=== PATIENT | male | born 1955 | race Caucasian/White ===

== ENCOUNTER 2021-12-11 16:23 | Inpatient (IN) | payer OTHER ==
[~2021-12-11] VITALS: Ht 177.8 cm; Wt 70.8 kg
[2021-12-11 20:00] VITALS: BP 106/68
[2021-12-11] MEDS ORDERED: ACETAMINOPHEN 325 MG TABLET PO PRN (20:00)
[2021-12-11] MEDS: SENNA 187 MG TABLET PO SCH (21:00)
[2021-12-11] MEDS: DOCUSATE SODIUM 100 MG CAPSULE PO SCH (21:00)
[2021-12-11] MEDS: POLYETHYLENE GLYCOL 3350 17 GM PACKET PO SCH (21:00)
[2021-12-11] MEDS: ROSUVASTATIN CALCIUM 20 MG TABLET PO SCH (21:26)
[2021-12-11] MEDS: ETHYL ALCOHOL 62% ANTISEPTIC NASAL SANITIZER 0.6 ML AMPUL NASAL SCH (21:27)
[2021-12-12 06:53] LABS: BASOPHILS % (AUTO) 1.3 % (0.0-2.0); EOSINOPHILS % (AUTO) 3.8 % (1.0-6.0); HEMATOCRIT 38.1 % (41-53); HEMOGLOBIN 12.5 g/dL (13.5-17.5); LYMPHOCYTES # (AUTO) 0.9 K/uL (1.0-4.8); LYMPHOCYTES % (AUTO) 13.9 % (22.0-44.0); MEAN CORPUSCULAR HGB CONC 32.9 G/dL (31.0-37.0); MEAN CORPUSCULAR VOLUME 85 fL (80-100); MONOCYTES # (AUTO) 0.7 K/uL (0.1-1.0); MONOCYTES % (AUTO) 11.2 % (2.0-9.0); NEUTROPHILS # (AUTO) 4.3 K/uL (1.8-7.7); NEUTROPHILS % (AUTO) 69.8 % (40.0-70.0); PLATELET COUNT (AUTO) 377 K/uL (150-450); RED BLOOD CELL COUNT(AUTO) 4.48 MIL/uL (4.50-5.90); RED CELL DISTRIBUTION WIDTH 15.1 % (11.5-14.5)
[2021-12-12 07:14] LABS: ALANINE AMINOTRANSFERASE 79 U/L (12-78); ALBUMIN 2.9 g/dL (3.4-5.0); ALKALINE PHOSPHATASE 82 U/L (46-116); ANION GAP 5 mmol/L (8-16); ASPARTATE AMINOTRANSFERASE 34 U/L (15-37); BILIRUBIN,TOTAL 0.2 mg/dL (0.1-1.0); CALCIUM, TOTAL 9.4 mg/dL (8.8-10.5); CARBON DIOXIDE 31 mmol/L (22-29); CHLORIDE 104 mmol/L (98-107); CREATININE 0.69 mg/dL (0.60-1.30); GLUCOSE,RANDOM 94 mg/dL (70-110); POTASSIUM 4.5 mmol/L (3.5-5.1); SODIUM SERUM 140 mmol/L (136-145); TOTAL PROTEIN, SERUM 6.6 g/dL (6.4-8.2); UREA NITROGEN, BLOOD 16 mg/dL (7-18)
[2021-12-12 07:33] LABS: GLOMERULAR FILTR. RATE CALC > 60 mL/min (>60)
[2021-12-12 08:05] VITALS: BP 145/75
[2021-12-12] MEDS: ETHYL ALCOHOL 62% ANTISEPTIC NASAL SANITIZER 0.6 ML AMPUL NASAL SCH ×2 (08:09→20:57)
[2021-12-12] MEDS: POLYETHYLENE GLYCOL 3350 17 GM PACKET PO SCH ×2 (08:10→20:51)
[2021-12-12] MEDS: DOCUSATE SODIUM 100 MG CAPSULE PO SCH ×2 (08:10→20:51)
[2021-12-12] MEDS: ASPIRIN 81 MG DR TABLET PO SCH (08:11)
[2021-12-12] MEDS: ENOXAPARIN SODIUM 40 MG/0.4 ML PF SYRINGE SQ SCH (08:11)
[2021-12-12] MEDS: COLD CREAM, SKIN EMOLLIENT 170 GM JAR TP SCH ×2 (08:12→20:33)
[2021-12-12] MEDS: ESOMEPRAZOLE MAG TRIHYDRATE 20 MG CAPSULE PO SCH (08:12)
[2021-12-12] MEDS ORDERED: ROSUVASTATIN CALCIUM 20 MG TABLET PO SCH (09:00)
[2021-12-12] MEDS: ROSUVASTATIN CALCIUM 20 MG TABLET PO SCH (20:32)
[2021-12-12] MEDS: SENNA 187 MG TABLET PO SCH (20:51)
[2021-12-12 21:00] VITALS: BP 122/75
[2021-12-13 08:30] VITALS: BP 118/78
[2021-12-13] MEDS: ETHYL ALCOHOL 62% ANTISEPTIC NASAL SANITIZER 0.6 ML AMPUL NASAL SCH ×2 (08:41→20:47)
[2021-12-13] MEDS: DOCUSATE SODIUM 100 MG CAPSULE PO SCH (08:41)
[2021-12-13] MEDS: ENOXAPARIN SODIUM 40 MG/0.4 ML PF SYRINGE SQ SCH (08:41)
[2021-12-13] MEDS: ESOMEPRAZOLE MAG TRIHYDRATE 20 MG CAPSULE PO SCH (08:42)
[2021-12-13] MEDS: POLYETHYLENE GLYCOL 3350 17 GM PACKET PO SCH ×2 (08:42→20:47)
[2021-12-13] MEDS: ASPIRIN 81 MG DR TABLET PO SCH (08:42)
[2021-12-13] MEDS: COLD CREAM, SKIN EMOLLIENT 170 GM JAR TP SCH ×2 (08:43→20:47)
[2021-12-13] MEDS ORDERED: DOCUSATE SODIUM 100 MG CAPSULE PO PRN (09:15)
[2021-12-13] MEDS: ROSUVASTATIN CALCIUM 20 MG TABLET PO SCH (20:47)
[2021-12-13] MEDS: SENNA 187 MG TABLET PO SCH (20:47)
[2021-12-13 21:00] VITALS: BP 116/70
[2021-12-14 07:45] VITALS: BP 130/84
[2021-12-14] MEDS: ETHYL ALCOHOL 62% ANTISEPTIC NASAL SANITIZER 0.6 ML AMPUL NASAL SCH ×2 (08:20→20:51)
[2021-12-14] MEDS: ASPIRIN 81 MG DR TABLET PO SCH (08:21)
[2021-12-14] MEDS: POLYETHYLENE GLYCOL 3350 17 GM PACKET PO SCH (08:21)
[2021-12-14] MEDS: ESOMEPRAZOLE MAG TRIHYDRATE 20 MG CAPSULE PO SCH (08:22)
[2021-12-14] MEDS: ENOXAPARIN SODIUM 40 MG/0.4 ML PF SYRINGE SQ SCH (08:22)
[2021-12-14] MEDS: COLD CREAM, SKIN EMOLLIENT 170 GM JAR TP SCH ×2 (08:23→20:51)
[2021-12-14] MEDS ORDERED: POLYETHYLENE GLYCOL 3350 17 GM PACKET PO PRN (09:30)
[2021-12-14] MEDS ORDERED: SENNA 187 MG TABLET PO PRN (09:30)
[2021-12-14 15:19] LABS: APPEARANCE,URINE CLEAR (CLEAR); BILIRUBIN,URINE NEGATIVE (NEGATIVE); GLUCOSE, URINE (UA) NEGATIVE (NEGATIVE); KETONES,URINE NEGATIVE (NEGATIVE); LEUKOCYTE ESTERASE ,URINE NEGATIVE (NEGATIVE); NITRATE,URINE NEGATIVE (NEGATIVE); OCCULT BLOOD,URINE NEGATIVE (NEGATIVE); PROTEIN,URINE TRACE mg/dL (NEGATIVE); SPECIFIC GRAVITIY, URINE 1.019 (1.003-1.030); UROBILINOGEN,URINE <=1.0 mg/dL (<=1.0)
[2021-12-14 15:33] LABS: BACTERIA,URINE None Seen /HPF (None Seen); RBC,URINE None Seen /HPF (0-2); WBC,URINE 0-2 /HPF (0-5)
[2021-12-14 20:00] VITALS: BP 122/76
[2021-12-14] MEDS: TAMSULOSIN HCL 0.4 MG CAPSULE PO SCH (20:51)
[2021-12-14] MEDS: ROSUVASTATIN CALCIUM 20 MG TABLET PO SCH (20:51)
[2021-12-15] MEDS: ESOMEPRAZOLE MAG TRIHYDRATE 20 MG CAPSULE PO SCH (08:14)
[2021-12-15] MEDS: ETHYL ALCOHOL 62% ANTISEPTIC NASAL SANITIZER 0.6 ML AMPUL NASAL SCH ×2 (08:14→20:33)
[2021-12-15] MEDS: ASPIRIN 81 MG DR TABLET PO SCH (08:14)
[2021-12-15] MEDS: ENOXAPARIN SODIUM 40 MG/0.4 ML PF SYRINGE SQ SCH (08:15)
[2021-12-15] MEDS: COLD CREAM, SKIN EMOLLIENT 170 GM JAR TP SCH ×2 (08:15→20:33)
[2021-12-15 08:25] VITALS: BP 130/83
[2021-12-15 20:01] VITALS: BP 117/57
[2021-12-15] MEDS: ROSUVASTATIN CALCIUM 20 MG TABLET PO SCH (20:33)
[2021-12-15] MEDS: TAMSULOSIN HCL 0.4 MG CAPSULE PO SCH (20:33)
[2021-12-16 08:02] VITALS: BP 121/73
[2021-12-16] MEDS: ENOXAPARIN SODIUM 40 MG/0.4 ML PF SYRINGE SQ SCH (08:12)
[2021-12-16] MEDS: ASPIRIN 81 MG DR TABLET PO SCH (08:12)
[2021-12-16] MEDS: ESOMEPRAZOLE MAG TRIHYDRATE 20 MG CAPSULE PO SCH (08:12)
[2021-12-16] MEDS: ETHYL ALCOHOL 62% ANTISEPTIC NASAL SANITIZER 0.6 ML AMPUL NASAL SCH ×2 (08:13→20:29)
[2021-12-16] MEDS: COLD CREAM, SKIN EMOLLIENT 170 GM JAR TP SCH ×2 (08:15→20:29)
[2021-12-16 20:15] VITALS: BP 115/77
[2021-12-16] MEDS: TAMSULOSIN HCL 0.4 MG CAPSULE PO SCH (20:29)
[2021-12-16] MEDS: ROSUVASTATIN CALCIUM 20 MG TABLET PO SCH (20:29)
[2021-12-16] MEDS: MELATONIN 5 MG TABLET PO PRN (20:29)
[2021-12-17 07:35] VITALS: BP 122/78
[2021-12-17] MEDS: ESOMEPRAZOLE MAG TRIHYDRATE 20 MG CAPSULE PO SCH (08:05)
[2021-12-17] MEDS: ETHYL ALCOHOL 62% ANTISEPTIC NASAL SANITIZER 0.6 ML AMPUL NASAL SCH ×2 (08:05→20:09)
[2021-12-17] MEDS: ASPIRIN 81 MG DR TABLET PO SCH (08:05)
[2021-12-17] MEDS: ENOXAPARIN SODIUM 40 MG/0.4 ML PF SYRINGE SQ SCH (08:06)
[2021-12-17] MEDS: COLD CREAM, SKIN EMOLLIENT 170 GM JAR TP SCH ×2 (08:06→20:10)
[2021-12-17] MEDS: MELATONIN 5 MG TABLET PO PRN (20:09)
[2021-12-17] MEDS: TAMSULOSIN HCL 0.4 MG CAPSULE PO SCH (20:10)
[2021-12-17] MEDS: ROSUVASTATIN CALCIUM 20 MG TABLET PO SCH (20:10)
[2021-12-17 20:30] VITALS: BP 108/72
[2021-12-18] MEDS: ETHYL ALCOHOL 62% ANTISEPTIC NASAL SANITIZER 0.6 ML AMPUL NASAL SCH ×2 (07:50→21:07)
[2021-12-18] MEDS: ENOXAPARIN SODIUM 40 MG/0.4 ML PF SYRINGE SQ SCH (07:50)
[2021-12-18] MEDS: ASPIRIN 81 MG DR TABLET PO SCH (07:50)
[2021-12-18] MEDS: ESOMEPRAZOLE MAG TRIHYDRATE 20 MG CAPSULE PO SCH (07:50)
[2021-12-18] MEDS: COLD CREAM, SKIN EMOLLIENT 170 GM JAR TP SCH ×2 (07:51→21:07)
[2021-12-18 08:02] VITALS: BP 119/74
[2021-12-18 20:00] VITALS: BP 111/71
[2021-12-18] MEDS: MIRTAZAPINE 15 MG TABLET PO SCH (21:07)
[2021-12-18] MEDS: ROSUVASTATIN CALCIUM 20 MG TABLET PO SCH (21:07)
[2021-12-18] MEDS: TAMSULOSIN HCL 0.4 MG CAPSULE PO SCH (21:07)
[2021-12-19 08:15] VITALS: BP 123/80
[2021-12-19] MEDS: ETHYL ALCOHOL 62% ANTISEPTIC NASAL SANITIZER 0.6 ML AMPUL NASAL SCH ×2 (09:00→20:10)
[2021-12-19] MEDS: ENOXAPARIN SODIUM 40 MG/0.4 ML PF SYRINGE SQ SCH (09:00)
[2021-12-19] MEDS: ESOMEPRAZOLE MAG TRIHYDRATE 20 MG CAPSULE PO SCH (09:00)
[2021-12-19] MEDS: ASPIRIN 81 MG DR TABLET PO SCH (09:00)
[2021-12-19] MEDS: COLD CREAM, SKIN EMOLLIENT 170 GM JAR TP SCH ×2 (09:01→20:10)
[2021-12-19 09:45] VITALS: BP 120/76
[2021-12-19] MEDS: TAMSULOSIN HCL 0.4 MG CAPSULE PO SCH (20:09)
[2021-12-19] MEDS: ROSUVASTATIN CALCIUM 20 MG TABLET PO SCH (20:09)
[2021-12-19] MEDS: MIRTAZAPINE 15 MG TABLET PO SCH (20:09)
[2021-12-19 20:59] VITALS: BP 127/80
[2021-12-20 08:30] VITALS: BP 124/64
[2021-12-20] MEDS: ASPIRIN 81 MG DR TABLET PO SCH (08:31)
[2021-12-20] MEDS: ETHYL ALCOHOL 62% ANTISEPTIC NASAL SANITIZER 0.6 ML AMPUL NASAL SCH ×2 (08:31→20:12)
[2021-12-20] MEDS: ESOMEPRAZOLE MAG TRIHYDRATE 20 MG CAPSULE PO SCH (08:31)
[2021-12-20] MEDS: ENOXAPARIN SODIUM 40 MG/0.4 ML PF SYRINGE SQ SCH (08:31)
[2021-12-20] MEDS: COLD CREAM, SKIN EMOLLIENT 170 GM JAR TP SCH ×2 (08:32→20:13)
[2021-12-20] MEDS: ROSUVASTATIN CALCIUM 20 MG TABLET PO SCH (20:11)
[2021-12-20] MEDS: MIRTAZAPINE 15 MG TABLET PO SCH (20:11)
[2021-12-20] MEDS: TAMSULOSIN HCL 0.4 MG CAPSULE PO SCH (20:11)
[2021-12-20 20:14] VITALS: BP 111/67
[2021-12-21] MEDS: ENOXAPARIN SODIUM 40 MG/0.4 ML PF SYRINGE SQ SCH (07:30)
[2021-12-21] MEDS: ASPIRIN 81 MG DR TABLET PO SCH (07:30)
[2021-12-21] MEDS: COLD CREAM, SKIN EMOLLIENT 170 GM JAR TP SCH ×2 (07:30→21:10)
[2021-12-21] MEDS: ESOMEPRAZOLE MAG TRIHYDRATE 20 MG CAPSULE PO SCH (07:30)
[2021-12-21] MEDS: ETHYL ALCOHOL 62% ANTISEPTIC NASAL SANITIZER 0.6 ML AMPUL NASAL SCH ×2 (07:34→21:10)
[2021-12-21 08:30] VITALS: BP 135/85
[2021-12-21 21:08] VITALS: BP 143/75
[2021-12-21] MEDS: MIRTAZAPINE 15 MG TABLET PO SCH (21:10)
[2021-12-21] MEDS: TAMSULOSIN HCL 0.4 MG CAPSULE PO SCH (21:10)
[2021-12-21] MEDS: ROSUVASTATIN CALCIUM 20 MG TABLET PO SCH (21:10)
[2021-12-22 08:15] VITALS: BP 111/72
[2021-12-22] MEDS: ESOMEPRAZOLE MAG TRIHYDRATE 20 MG CAPSULE PO SCH (08:40)
[2021-12-22] MEDS: ETHYL ALCOHOL 62% ANTISEPTIC NASAL SANITIZER 0.6 ML AMPUL NASAL SCH ×2 (08:40→20:37)
[2021-12-22] MEDS: ENOXAPARIN SODIUM 40 MG/0.4 ML PF SYRINGE SQ SCH (08:40)
[2021-12-22] MEDS: ASPIRIN 81 MG DR TABLET PO SCH (08:41)
[2021-12-22] MEDS: COLD CREAM, SKIN EMOLLIENT 170 GM JAR TP SCH ×2 (08:44→20:40)
[2021-12-22 20:05] VITALS: BP 109/65
[2021-12-22] MEDS: TAMSULOSIN HCL 0.4 MG CAPSULE PO SCH (20:38)
[2021-12-22] MEDS: ROSUVASTATIN CALCIUM 20 MG TABLET PO SCH (20:38)
[2021-12-22] MEDS: MIRTAZAPINE 15 MG TABLET PO SCH (20:38)
[2021-12-23 08:05] VITALS: BP 121/81
[2021-12-23] MEDS: ENOXAPARIN SODIUM 40 MG/0.4 ML PF SYRINGE SQ SCH (08:58)
[2021-12-23] MEDS: ETHYL ALCOHOL 62% ANTISEPTIC NASAL SANITIZER 0.6 ML AMPUL NASAL SCH ×2 (08:58→20:13)
[2021-12-23] MEDS: ESOMEPRAZOLE MAG TRIHYDRATE 20 MG CAPSULE PO SCH (08:58)
[2021-12-23] MEDS: COLD CREAM, SKIN EMOLLIENT 170 GM JAR TP SCH ×2 (08:59→20:14)
[2021-12-23] MEDS: ASPIRIN 81 MG DR TABLET PO SCH (08:59)
[2021-12-23] MEDS: ROSUVASTATIN CALCIUM 20 MG TABLET PO SCH (20:13)
[2021-12-23] MEDS: TAMSULOSIN HCL 0.4 MG CAPSULE PO SCH (20:13)
[2021-12-23] MEDS: MIRTAZAPINE 15 MG TABLET PO SCH (20:13)
[2021-12-23 20:15] VITALS: BP 118/73
[2021-12-24] MEDS: ETHYL ALCOHOL 62% ANTISEPTIC NASAL SANITIZER 0.6 ML AMPUL NASAL SCH ×2 (08:14→21:00)
[2021-12-24] MEDS: ENOXAPARIN SODIUM 40 MG/0.4 ML PF SYRINGE SQ SCH (08:14)
[2021-12-24] MEDS: ESOMEPRAZOLE MAG TRIHYDRATE 20 MG CAPSULE PO SCH (08:14)
[2021-12-24] MEDS: ASPIRIN 81 MG DR TABLET PO SCH (08:15)
[2021-12-24] MEDS: COLD CREAM, SKIN EMOLLIENT 170 GM JAR TP SCH ×2 (08:16→21:01)
[2021-12-24 08:20] VITALS: BP 134/77
[2021-12-24] MEDS: TAMSULOSIN HCL 0.4 MG CAPSULE PO SCH (21:00)
[2021-12-24] MEDS: MIRTAZAPINE 15 MG TABLET PO SCH (21:00)
[2021-12-24] MEDS: ROSUVASTATIN CALCIUM 20 MG TABLET PO SCH (21:00)
[2021-12-24 21:05] VITALS: BP 120/74
[2021-12-25 08:00] VITALS: BP 122/75
[2021-12-25] MEDS: ENOXAPARIN SODIUM 40 MG/0.4 ML PF SYRINGE SQ SCH (09:00)
[2021-12-25] MEDS: ESOMEPRAZOLE MAG TRIHYDRATE 20 MG CAPSULE PO SCH (09:00)
[2021-12-25] MEDS: ETHYL ALCOHOL 62% ANTISEPTIC NASAL SANITIZER 0.6 ML AMPUL NASAL SCH ×2 (09:00→20:14)
[2021-12-25] MEDS: ASPIRIN 81 MG DR TABLET PO SCH (09:00)
[2021-12-25] MEDS: COLD CREAM, SKIN EMOLLIENT 170 GM JAR TP SCH ×2 (09:01→20:15)
[2021-12-25] MEDS: ROSUVASTATIN CALCIUM 20 MG TABLET PO SCH (20:15)
[2021-12-25] MEDS: MIRTAZAPINE 15 MG TABLET PO SCH (20:15)
[2021-12-25] MEDS: TAMSULOSIN HCL 0.4 MG CAPSULE PO SCH (20:15)
[2021-12-25 21:00] VITALS: BP 124/79
[2021-12-25] MEDS ORDERED: ESOM20CA39 PO (22:24)
[2021-12-25] MEDS ORDERED: ASPI-1450 PO (22:24)
[2021-12-25] MEDS ORDERED: ROSU20TA73 PO (22:24)
[2021-12-25] MEDS ORDERED: MIRT-89 PO (22:24)
[2021-12-25] MEDS ORDERED: TAMS-13 PO (22:24)
[2021-12-26 08:15] VITALS: BP 129/87
[2021-12-26] MEDS: ENOXAPARIN SODIUM 40 MG/0.4 ML PF SYRINGE SQ SCH (09:01)
[2021-12-26] MEDS: ESOMEPRAZOLE MAG TRIHYDRATE 20 MG CAPSULE PO SCH (09:01)
[2021-12-26] MEDS: ETHYL ALCOHOL 62% ANTISEPTIC NASAL SANITIZER 0.6 ML AMPUL NASAL SCH ×2 (09:01→20:24)
[2021-12-26] MEDS: COLD CREAM, SKIN EMOLLIENT 170 GM JAR TP SCH ×2 (09:01→20:25)
[2021-12-26] MEDS: ASPIRIN 81 MG DR TABLET PO SCH (09:01)
[2021-12-26] MEDS: ROSUVASTATIN CALCIUM 20 MG TABLET PO SCH (20:24)
[2021-12-26] MEDS: TAMSULOSIN HCL 0.4 MG CAPSULE PO SCH (20:24)
[2021-12-26] MEDS: MIRTAZAPINE 15 MG TABLET PO SCH (20:24)
[2021-12-26 20:43] VITALS: BP 114/72
[2021-12-27 07:30] VITALS: BP 125/80
[2021-12-27] MEDS: ASPIRIN 81 MG DR TABLET PO SCH (08:40)
[2021-12-27] MEDS: ESOMEPRAZOLE MAG TRIHYDRATE 20 MG CAPSULE PO SCH (08:40)
[2021-12-27] MEDS: ETHYL ALCOHOL 62% ANTISEPTIC NASAL SANITIZER 0.6 ML AMPUL NASAL SCH ×2 (08:40→20:40)
[2021-12-27] MEDS: ENOXAPARIN SODIUM 40 MG/0.4 ML PF SYRINGE SQ SCH (08:41)
[2021-12-27] MEDS: COLD CREAM, SKIN EMOLLIENT 170 GM JAR TP SCH ×2 (08:41→20:41)
[2021-12-27] MEDS: ROSUVASTATIN CALCIUM 20 MG TABLET PO SCH (20:40)
[2021-12-27] MEDS: TAMSULOSIN HCL 0.4 MG CAPSULE PO SCH (20:40)
[2021-12-27] MEDS: MIRTAZAPINE 15 MG TABLET PO SCH (20:41)
[2021-12-27 21:24] VITALS: BP 117/75
[2021-12-28 07:30] VITALS: BP 126/76
[2021-12-28] MEDS: ETHYL ALCOHOL 62% ANTISEPTIC NASAL SANITIZER 0.6 ML AMPUL NASAL SCH ×2 (07:47→20:13)
[2021-12-28] MEDS: ASPIRIN 81 MG DR TABLET PO SCH (07:48)
[2021-12-28] MEDS: ENOXAPARIN SODIUM 40 MG/0.4 ML PF SYRINGE SQ SCH (07:48)
[2021-12-28] MEDS: ESOMEPRAZOLE MAG TRIHYDRATE 20 MG CAPSULE PO SCH (07:48)
[2021-12-28] MEDS: COLD CREAM, SKIN EMOLLIENT 170 GM JAR TP SCH ×2 (07:49→20:14)
[2021-12-28 20:02] VITALS: BP 117/82
[2021-12-28] MEDS: MIRTAZAPINE 15 MG TABLET PO SCH (20:14)
[2021-12-28] MEDS: TAMSULOSIN HCL 0.4 MG CAPSULE PO SCH (20:14)
[2021-12-28] MEDS: ROSUVASTATIN CALCIUM 20 MG TABLET PO SCH (20:14)
[2021-12-29 07:30] VITALS: BP 114/74
[2021-12-29] MEDS: ETHYL ALCOHOL 62% ANTISEPTIC NASAL SANITIZER 0.6 ML AMPUL NASAL SCH ×2 (07:44→20:12)
[2021-12-29] MEDS: COLD CREAM, SKIN EMOLLIENT 170 GM JAR TP SCH ×2 (07:45→20:13)
[2021-12-29] MEDS: ASPIRIN 81 MG DR TABLET PO SCH (07:45)
[2021-12-29] MEDS: ENOXAPARIN SODIUM 40 MG/0.4 ML PF SYRINGE SQ SCH (07:45)
[2021-12-29] MEDS: ESOMEPRAZOLE MAG TRIHYDRATE 20 MG CAPSULE PO SCH (07:45)
[2021-12-29 08:55] VITALS: BP 114/74
[2021-12-29] MEDS: ROSUVASTATIN CALCIUM 20 MG TABLET PO SCH (20:12)
[2021-12-29] MEDS: MIRTAZAPINE 15 MG TABLET PO SCH (20:13)
[2021-12-29] MEDS: TAMSULOSIN HCL 0.4 MG CAPSULE PO SCH (20:13)
[2021-12-29 20:15] VITALS: BP 122/72
[2021-12-30 08:01] VITALS: BP 123/79
[2021-12-30] MEDS: ENOXAPARIN SODIUM 40 MG/0.4 ML PF SYRINGE SQ SCH (08:07)
[2021-12-30] MEDS: ETHYL ALCOHOL 62% ANTISEPTIC NASAL SANITIZER 0.6 ML AMPUL NASAL SCH ×2 (08:07→20:05)
[2021-12-30] MEDS: ESOMEPRAZOLE MAG TRIHYDRATE 20 MG CAPSULE PO SCH (08:07)
[2021-12-30] MEDS: ASPIRIN 81 MG DR TABLET PO SCH (08:07)
[2021-12-30] MEDS: COLD CREAM, SKIN EMOLLIENT 170 GM JAR TP SCH ×2 (08:09→20:06)
[2021-12-30 20:00] VITALS: BP 108/70
[2021-12-30] MEDS: MIRTAZAPINE 15 MG TABLET PO SCH (20:05)
[2021-12-30] MEDS: ROSUVASTATIN CALCIUM 20 MG TABLET PO SCH (20:05)
[2021-12-30] MEDS: TAMSULOSIN HCL 0.4 MG CAPSULE PO SCH (20:05)
[2021-12-31 07:25] VITALS: BP 111/67
[2021-12-31] MEDS: ETHYL ALCOHOL 62% ANTISEPTIC NASAL SANITIZER 0.6 ML AMPUL NASAL SCH ×2 (08:08→20:19)
[2021-12-31] MEDS: ESOMEPRAZOLE MAG TRIHYDRATE 20 MG CAPSULE PO SCH (08:09)
[2021-12-31] MEDS: ASPIRIN 81 MG DR TABLET PO SCH (08:09)
[2021-12-31] MEDS: COLD CREAM, SKIN EMOLLIENT 170 GM JAR TP SCH ×2 (08:10→20:19)
[2021-12-31] MEDS: ENOXAPARIN SODIUM 40 MG/0.4 ML PF SYRINGE SQ SCH (08:10)
[2021-12-31] MEDS ORDERED: ONDANSETRON HCL 4 MG TABLET PO PRN (09:45)
[2021-12-31 20:00] VITALS: BP 127/71
[2021-12-31] MEDS: MIRTAZAPINE 15 MG TABLET PO SCH (20:18)
[2021-12-31] MEDS: TAMSULOSIN HCL 0.4 MG CAPSULE PO SCH (20:18)
[2021-12-31] MEDS: ROSUVASTATIN CALCIUM 20 MG TABLET PO SCH (20:19)
[2022-01-01] MEDS: ENOXAPARIN SODIUM 40 MG/0.4 ML PF SYRINGE SQ SCH (08:00)
[2022-01-01] MEDS: ETHYL ALCOHOL 62% ANTISEPTIC NASAL SANITIZER 0.6 ML AMPUL NASAL SCH ×2 (08:00→20:42)
[2022-01-01] MEDS: ASPIRIN 81 MG DR TABLET PO SCH (08:00)
[2022-01-01] MEDS: ESOMEPRAZOLE MAG TRIHYDRATE 20 MG CAPSULE PO SCH (08:00)
[2022-01-01] MEDS: COLD CREAM, SKIN EMOLLIENT 170 GM JAR TP SCH ×2 (08:01→20:37)
[2022-01-01 08:57] VITALS: BP 111/81
[2022-01-01 20:00] VITALS: BP 108/70
[2022-01-01] MEDS: ROSUVASTATIN CALCIUM 20 MG TABLET PO SCH (20:37)
[2022-01-01] MEDS: MIRTAZAPINE 15 MG TABLET PO SCH (20:37)
[2022-01-01] MEDS: TAMSULOSIN HCL 0.4 MG CAPSULE PO SCH (20:37)
[2022-01-02 08:15] VITALS: BP 129/84
[2022-01-02] MEDS: ESOMEPRAZOLE MAG TRIHYDRATE 20 MG CAPSULE PO SCH (08:17)
[2022-01-02] MEDS: ASPIRIN 81 MG DR TABLET PO SCH (08:17)
[2022-01-02] MEDS: ETHYL ALCOHOL 62% ANTISEPTIC NASAL SANITIZER 0.6 ML AMPUL NASAL SCH (08:17)
[2022-01-02] MEDS: ENOXAPARIN SODIUM 40 MG/0.4 ML PF SYRINGE SQ SCH (08:18)
[2022-01-02] MEDS: COLD CREAM, SKIN EMOLLIENT 170 GM JAR TP SCH (08:19)
[2022-01-02] MEDS ORDERED: ASPI-1444 PO (14:03)
[2022-01-02] MEDS ORDERED: TAMS-13 PO (14:03)
[2022-01-02] MEDS ORDERED: ROSU20TA73 PO (14:03)
[2022-01-02] MEDS ORDERED: ESOM20CA31 PO (14:03)
[2022-01-02] MEDS ORDERED: MIRT-89 PO (14:03)
[2022-01-02] MEDS ORDERED: POLY17PO47 PO (14:03)
== END 2022-01-02 16:10 | disposition home health service (06) | DRG 64 ==
LOC: 2WR 19:00
PROVIDERS: ADMIT Physical Medicine & Rehabilitation; ATTEND Physical Medicine & Rehabilitation
DX: I63.9 Cerebral infarction, unspecified (principal); I61.9 Nontraumatic intracerebral hemorrhage, unspecified; E46 Unspecified protein-calorie malnutrition; G81.91 Hemiplegia, unspecified affecting right dominant side; R47.01 Aphasia; F32.A Depression, unspecified; F41.9 Anxiety disorder, unspecified; K59.00 Constipation, unspecified; R13.10 Dysphagia, unspecified; Z98.2 Presence of cerebrospinal fluid drainage device; R33.9 Retention of urine, unspecified; F43.20 Adjustment disorder, unspecified; R27.0 Ataxia, unspecified; Z68.22 Body mass index [BMI] 22.0-22.9, adult
CPT/HCPCS: 80053; 81001; 84153; 85025; 87081; 92507; 92523; 93970; 97112; 97116; 97150; 97163; 97167; 97530; 97535; 99366; J1650; Q0162; Q9967